=== PATIENT | female | born 1965 | race Caucasian/White ===

== ENCOUNTER 2017-04-24 09:42 | Emergency (ER) | payer BC ==
[2017-04-24 09:53] VITALS: BP 110/60
--- NOTE | 2017-04-24 10:17 | UC ---
Eye Complaint HPI - HPI Summary HPI Summary: Patient has had 24 hours of itchy red eyes with purulent drainage. - History of Current Complaint Chief Complaint: UCEye Stated Complaint: EYE COMPLAINT Time Seen by Provider: 04/24/17 10:04 Hx Obtained From: Patient ?: No Onset/Duration: Sudden Onset, Lasting Days Timing: Constant Severity Initially: Moderate Severity Currently: Moderate Location of Injury: Conjunctiva, Sclera Character: Foreign Body Sensation Associated Signs And Symptoms: Positive: Photophobia, Drainage (Purulent) - Allergies/Home Medications Allergies/Adverse Reactions: Allergies Allergy/AdvReac Type Severity Reaction Status Date / Time No Known Allergies Allergy Verified 04/24/17 09:53 Home Medications: Home Medications Probiotic Product [Probiotic Daily] 1 cap PO DAILY 04/24/17 [History Confirmed 04/24/17] PMH/Surg Hx/FS Hx/Imm Hx Previously Healthy: Yes - Surgical History Surgical History: Yes Surgery Procedure, Year, and Place: c section x 2. Tonsils - Family History Known Family History: Negative: Cardiac Disease, Hypertension - Social History Alcohol Use: Weekly Substance Use Type: None Smoking Status (MU): Never Smoked Tobacco Review of Systems Constitutional: Negative Skin: Negative Eyes: Drainage, Eye Redness ENT: Negative Respiratory: Negative Cardiovascular: Negative Gastrointestinal: Negative Genitourinary: Negative Motor: Negative Neurovascular: Negative Musculoskeletal: Negative Neurological: Negative Psychological: Negative All Other Systems Reviewed And Are Negative: Yes Physical Exam Triage Information Reviewed: Yes Appearance: Well-Appearing, Well-Nourished, Pain Distress Vital Signs: Initial Vital Signs Temp 99.9 F 04/24/17 09:48 Pulse 73 04/24/17 09:48 Resp 14 04/24/17 09:48 BP 110/60 04/24/17 09:48 Pulse Ox 100 04/24/17 09:48 Vital Signs Reviewed: Yes Eyes: Positive: Conjunctiva Inflamed, Discharge ENT Exam: Normal ENT: Positive: Hearing grossly normal, Pharynx normal, TMs normal Dental Exam: Normal Neck exam: Normal Respiratory Exam: Normal Cardiovascular Exam: Normal Neurological Exam: Normal Psychological Exam: Normal Skin Exam: Normal Eye Complaint Course/Dx - Course Course Of Treatment: hx obtained, exam performed ,meds reviewed and prescribed. - Differential Dx/Diagnosis Differential Diagnosis/HQI/PQRI: Conjunctivitis Provider Diagnoses: bilateral bacterial conjunctivitis Discharge - Discharge Plan Condition: Stable Disposition: HOME Prescriptions: Erythromycin OPHTH.OINT* [Ilotycin OPHTH.OINT*] 1 applic BOTH EYES TID #1 tube Patient Education Materials: Conjunctivitis (ED) Additional Instructions: 1. use the medication as prescribed. 2. perform good hand hygiene 3. Follow up with medical care if not responding to treatment.
== END 2017-04-24 10:21 | disposition home or self-care (01) ==
LOC: UCCORT 09:42
DX: H10.023 Other mucopurulent conjunctivitis, bilateral (principal)
CPT/HCPCS: 99202; G0463